=== PATIENT | female | born 1940 | race Caucasian/White ===

== ENCOUNTER 2019-11-23 18:02 | Inpatient (IN) | payer MEDICARE, SELFPAY ==
[~2019-11-23] VITALS: Ht 157.5 cm; Wt 49.9 kg
[2019-11-23 18:04] VITALS: BP 137/90
[2019-11-23] MEDS ORDERED: NACL 0.9% 1,000 ML IV SCH (18:10)
[2019-11-23] MEDS ORDERED: cefTRIAXone 1,000 MG in DEXT 5% MINI-BAG PLUS 50 ML IV ONE (18:10)
[2019-11-23] MEDS ORDERED: LORazepam 2 MG/ML VIAL IVP ONE (18:20)
[2019-11-23] MEDS ORDERED: ACETAMINOPHEN 650 MG SUPP RC ONE (18:25)
[2019-11-23] MEDS ORDERED: cefTRIAXone 1,000 MG VIAL ONE (18:30)
[2019-11-23 19:12] LABS: APPEARANCE,URINE CLEAR (CLEAR); BILIRUBIN,URINE NEGATIVE (NEGATIVE); BLOOD, URINE TRACE-I (NEGATIVE); COLOR,URINE YELLOW (YELLOW); LEUKOCYTE ESTERASE ,URINE NEGATIVE (NEGATIVE); NITRITE, URINE NEGATIVE (NEGATIVE); PH,URINE 5.5 (5.0-9.0); UGLUCOSE NEGATIVE (NEGATIVE)
[2019-11-23 19:12] LABS: BASOPHILS % (AUTO) 0.2 % (0.0-2.0); EOSINOPHILS % (AUTO) 0.2 % (0.0-4.0); HEMATOCRIT 37.7 % (36-48); HEMOGLOBIN 12.2 g/dL (12.0-16.0); LYMPHOCYTES # (AUTO) 0.6 K/uL (2.5-16.5); LYMPHOCYTES % (AUTO) 4.1 % (20.5-51.1); MEAN CORPUSCULAR HEMOGLOBIN 28 pg (27-31); MEAN CORPUSCULAR HGB CONC 32 g/dL (33-37); MEAN CORPUSCULAR VOLUME 87.4 fL (80-94); MONOCYTES # (AUTO) 0.7 K/uL (0.8-1.0); MONOCYTES % (AUTO) 4.7 % (1.7-9.3); NEUTROPHILS # (AUTO) 12.8 K/uL (1.8-7.7); NEUTROPHILS % (AUTO) 90.8 % (42.2-75.2); PLATELET COUNT (AUTO) 171 K/uL (140-450); RED BLOOD CELL COUNT(AUTO) 4.31 MIL/uL (4.20-5.40); RED CELL DISTRIBUTION WIDTH 14.2 % (11.6-13.7); WHITE BLOOD COUNT (AUTO) 14.2 K/uL (4.8-10.8)
[2019-11-23 19:20] LABS: ANION GAP 15.5 (8-16); CARBON DIOXIDE 27.6 mmol/L (21-32); CHLORIDE 104 mmol/L (98-107); CREATININE 1.1 mg/dL (0.6-1.3); GLUCOSE 152 mg/dL (74-106); POTASSIUM 4.1 mmol/L (3.5-5.1); SODIUM SERUM 143 mmol/L (136-145); UREA NITROGEN, BLOOD 19 mg/dL (7-18)
[2019-11-23 19:26] LABS: ALBUMIN 3.7 g/dL (3.4-5.0); ASPARTATE AMINOTRANSFERASE 22 U/L (15-37); TOTAL BILIRUBIN 0.5 mg/dL (0.0-1.0)
[2019-11-23] MEDS ORDERED: methylPREDNISolone SS 125 MG in WATER STERILE 2 ML IV ONE (20:10)
[2019-11-23] MEDS ORDERED: methylPREDNISolone SS 125 MG/2 ML VIAL ONE (20:29)
[2019-11-23] MEDS ORDERED: WATER STERILE 10 ML MC ONE (20:29)
[2019-11-23] MEDS ORDERED: DOCUSATE SODIUM 100 MG GELCAP PO PRN (20:40)
[2019-11-23] MEDS ORDERED: AZITHROMYCIN 500 MG in DEXTROSE 5% 250 ML IV SCH (20:40)
[2019-11-23] MEDS ORDERED: ONDANSETRON 4 MG/2 ML VIAL IM/IVP PRN (20:40)
[2019-11-23] MEDS ORDERED: ACETAMINOPHEN 325 MG TAB PO PRN (20:40)
[2019-11-23] MEDS ORDERED: HALOPERIDOL IM 5 MG/ML VIAL IM ONE (20:55)
[2019-11-23 21:19] LABS: PROTHROMBIN TIME 9.3 secs (10.8-13.4)
[2019-11-23] MEDS ORDERED: ALBUTEROL SULFATE/IPRATROPIU 3 ML SOL IH PRN (21:20)
[2019-11-23 21:47] VITALS: BP 107/67
[2019-11-23] MEDS ORDERED: FORM11 IH (22:11)
[2019-11-23] MEDS ORDERED: ALBU1SPR IH (22:11)
[2019-11-23] MEDS ORDERED: ATOR10TA PO (22:11)
[2019-11-23] MEDS ORDERED: MIRT15TA PO (22:11)
[2019-11-23] MEDS ORDERED: PRON INH (22:11)
[2019-11-23] MEDS ORDERED: nebulizer (22:11)
[2019-11-23] MEDS ORDERED: ALEN70TA1 PO (22:11)
[2019-11-23] MEDS ORDERED: SPIMDI INH (22:11)
[2019-11-23] MEDS ORDERED: [UNRECOGNIZED DRUG - OTHER] (22:11)
[2019-11-23] MEDS ORDERED: SYN.05 PO (22:11)
[2019-11-23] MEDS: DEXT 5% /NACL 0.9% 1,000 ML IV SCH (23:00)
[2019-11-23 23:35] LABS: FREE T4 (FREE THYROXINE) 1.17 ng/dL (0.76-1.46); MAGNESIUM 1.6 mg/dL (1.8-2.4); THYROID STIMULATING HORMONE 3.05 uIU/mL (0.34-3.74)
[2019-11-24] VITALS: BP 111/55
[2019-11-24] MEDS ORDERED: ALBUTEROL HFA MDI 90 MCG/ACTUATION 8 GM INH SCH
[2019-11-24] MEDS ORDERED: MAG SULF 2000 MG/WATER PREMIX 50 ML IV SCH (00:40)
[2019-11-24 04:00] VITALS: BP 110/61
[2019-11-24] MEDS ORDERED: AZITHROMYCIN 500 MG INJ VIAL IV ONE (04:14)
[2019-11-24 06:18] LABS: ANION GAP 13.2 (8-16); ASPARTATE AMINOTRANSFERASE 19 U/L (15-37); CARBON DIOXIDE 26.5 mmol/L (21-32); CHLORIDE 106 mmol/L (98-107); CHOL/HDL RATIO 1.7 (1-4.5); GLUCOSE 240 mg/dL (74-106); HDL CHOLESTEROL 92 mg/dL (40-60); LDL (CALC) 59 mg/dL (60-100); POTASSIUM 3.7 mmol/L (3.5-5.1); SODIUM SERUM 142 mmol/L (136-145); TOTAL BILIRUBIN 0.5 mg/dL (0.0-1.0); TRIGLYCERIDES 27 mg/dL (30-150); UREA NITROGEN, BLOOD 21 mg/dL (7-18)
[2019-11-24 06:21] LABS: PHOSPHORUS 3.4 mg/dL (2.5-4.9)
[2019-11-24] MEDS: LEVOTHYROXINE 0.05 MG TAB PO SCH (06:30)
[2019-11-24] MEDS ORDERED: ALBUTEROL SULFATE/IPRATROPIU 3 ML SOL IH SCH (07:00)
[2019-11-24 08:00] VITALS: BP 118/64
[2019-11-24] MEDS ORDERED: ALBUTEROL HFA MDI 90 MCG/ACTUATION 8 GM INH PRN (08:50)
[2019-11-24] MEDS ORDERED: methylPREDNISolone SS 40 MG/ML VIAL ONE ×2 (08:57→19:53)
[2019-11-24] MEDS: AZITHROMYCIN 250 MG TAB PO SCH (08:58)
[2019-11-24] MEDS: methylPREDNISolone SS 40 MG in WATER STERILE 1 ML IV SCH ×2 (08:59→20:07)
[2019-11-24] MEDS ORDERED: ENOXAPARIN 60 MG/0.6 ML SYR SUBQ SCH (09:00)
[2019-11-24 11:20] VITALS: BP 94/64
[2019-11-24 12:15] LABS: HEMOGLOBIN 11.4 g/dL (12.0-16.0); MEAN CORPUSCULAR HEMOGLOBIN 29 pg (27-31); MEAN CORPUSCULAR HGB CONC 33 g/dL (33-37); MEAN CORPUSCULAR VOLUME 89.7 fL (80-94); PLATELET COUNT (AUTO) 155 K/uL (140-450); RED CELL DISTRIBUTION WIDTH 14.5 % (11.6-13.7); WHITE BLOOD COUNT (AUTO) 17.5 K/uL (4.8-10.8)
[2019-11-24 12:28] LABS: LYMPHOCYTES % (MANUAL) 11 % (20-46); MONOCYTES % (MANUAL) 2 % (5-12)
[2019-11-24] MEDS: ALBUTEROL HFA MDI 90 MCG/ACTUATION 8 GM INH SCH ×2 (15:25→21:06)
[2019-11-24 16:20] VITALS: BP 126/50
[2019-11-24] MEDS ORDERED: MIRTAZAPINE 15 MG TAB ONE (19:56)
[2019-11-24 20:00] VITALS: BP 110/55
[2019-11-24] MEDS: DEXT 5% /NACL 0.9% 1,000 ML IV SCH (20:39)
[2019-11-24] MEDS ORDERED: ATORVASTATIN 20 MG TAB PO SCH (21:00)
[2019-11-24] MEDS ORDERED: MIRTAZAPINE 15 MG TAB PO SCH (21:00)
[2019-11-25] VITALS: BP 107/54
[2019-11-25 04:00] VITALS: BP 120/48
[2019-11-25] MEDS: LEVOTHYROXINE 0.05 MG TAB PO SCH (05:45)
[2019-11-25 06:11] LABS: MAGNESIUM 1.8 mg/dL (1.8-2.4); PHOSPHORUS 2.8 mg/dL (2.5-4.9)
[2019-11-25 06:12] LABS: HEMATOCRIT 32.6 % (36-48); HEMOGLOBIN 10.7 g/dL (12.0-16.0); MEAN CORPUSCULAR HEMOGLOBIN 29 pg (27-31); MEAN CORPUSCULAR HGB CONC 33 g/dL (33-37); MEAN CORPUSCULAR VOLUME 86.8 fL (80-94); PLATELET COUNT (AUTO) 164 K/uL (140-450); RED BLOOD CELL COUNT(AUTO) 3.75 MIL/uL (4.20-5.40); RED CELL DISTRIBUTION WIDTH 14.7 % (11.6-13.7); WHITE BLOOD COUNT (AUTO) 20.2 K/uL (4.8-10.8)
[2019-11-25 06:16] LABS: ANION GAP 7.9 (8-16); CARBON DIOXIDE 28.8 mmol/L (21-32); CHLORIDE 110 mmol/L (98-107); CREATININE 0.9 mg/dL (0.6-1.3); GLUCOSE 167 mg/dL (74-106); POTASSIUM 3.7 mmol/L (3.5-5.1); SODIUM SERUM 143 mmol/L (136-145); UREA NITROGEN, BLOOD 23 mg/dL (7-18)
[2019-11-25 06:58] LABS: LYMPHOCYTES % (MANUAL) 3 % (20-46); MONOCYTES % (MANUAL) 2 % (5-12)
[2019-11-25 08:00] VITALS: BP 128/70
[2019-11-25] MEDS: AZITHROMYCIN 250 MG TAB PO SCH (08:37)
[2019-11-25] MEDS ORDERED: methylPREDNISolone SS 40 MG/ML VIAL IVP SCH (09:00)
[2019-11-25] MEDS: ALBUTEROL HFA MDI 90 MCG/ACTUATION 8 GM INH SCH ×2 (10:14→13:48)
[2019-11-25 12:00] VITALS: BP 123/63
[2019-11-25] MEDS ORDERED: CHLORHEXADINE GLUC 2% CLOTH TP SCH (12:00)
[2019-11-25] MEDS ORDERED: MUPIROCIN CA NASAL 2% 1GM TUBE NS SCH (12:00)
[2019-11-25] MEDS: DEXT 5% /NACL 0.9% 1,000 ML IV SCH (14:10)
[2019-11-25] MEDS ORDERED: AZIT250T11 PO (14:34)
[2019-11-25] MEDS ORDERED: METH4TAB3 PO (14:34)
[2019-11-25 15:56] LABS: FERRITIN 78 ng/mL (15 - 150)
[2019-11-26 09:15] LABS: LACTATE DEHYDROGENASE 221 IU/L (119-226)
== END 2019-11-25 16:20 | disposition home or self-care (01) | DRG 871 ==
LOC: EEVIPCON 18:02 → MED 18:02 → MMU 20:39
PROVIDERS: ADMIT General Practice; ATTEND General Practice
DX: A41.9 Sepsis, unspecified organism (principal); J96.21 Acute and chronic respiratory failure with hypoxia; J18.9 Pneumonia, unspecified organism; J44.1 Chronic obstructive pulmonary disease with (acute) exacerbation; E03.9 Hypothyroidism, unspecified; E78.5 Hyperlipidemia, unspecified; F03.90 Unspecified dementia, unspecified severity, without behavioral disturbance, psychotic disturbance, mood disturbance, and anxiety; I10 Essential (primary) hypertension; Z87.891 Personal history of nicotine dependence; M81.0 Age-related osteoporosis without current pathological fracture; F32.9 Major depressive disorder, single episode, unspecified; Z03.818 Encounter for observation for suspected exposure to other biological agents ruled out
CPT/HCPCS: 36415; 36600; 71045; 71275; 80048; 80053; 81003; 82140; 82728; 82803; 83036; 83605; 83615; 83625; 83735; 83880; 84100; 84134; 84439; 84443; 84484; 85025; 85379; 85610; 85651; 85730; 86140; 87040; 87081; 87086; 87804; 93005; 93970; 94664; 96365; 96372; 96375; 97112; 99291; J0456; J0696; J1630; J1644; J2060; J2920; J2930; J3535; J7042; J7060; Q0092; Q9967